=== PATIENT | male | born 1980 | race Caucasian/White ===

== ENCOUNTER 2019-03-12 10:03 | Emergency (ER) | payer SELFPAY ==
[2019-03-12] MEDS ORDERED: Sodium Chloride 0.9% 1,000 ML IV ONE (10:23)
[2019-03-12] MEDS ORDERED: fentaNYL 100 MCG/2 ML SDV IVPUSH ONE ×2 (10:24→11:26)
[2019-03-12] MEDS ORDERED: Ondansetron 4 MG/2 ML SDV IVPUSH ONE (10:24)
--- NOTE | 2019-03-12 10:28 | EDM.PDOC ---
ED HPI GENERAL MEDICAL PROBLEM - General Chief Complaint: Back Pain or Injury Stated Complaint: BACK PAIN , SOB Time Seen by Provider: 03/12/19 10:07 Source of Information: Reports: Patient History Limitations: Reports: No Limitations - History of Present Illness INITIAL COMMENTS - FREE TEXT/NARRATIVE: Presents reporting a 30 minute history of left flank pain. The patient states that he had a little pain last evening but slept well during the night got up went to work and about 10 AM started with pain in the mid left back radiating to the left lower quadrant. No nausea, diarrhea, vomiting, fever, dysuria. Otherwise healthy without chronic medical problems except obesity and poor dentition. No personal or family history of kidney stones. Middle Back Pain Score (Numeric/FACES): 9 - Related Data Allergies Allergy/AdvReac Type Severity Reaction Status Date / Time No Known Allergies Allergy Verified 03/12/19 10:21 Home Meds: Home Meds Hydrocodone/Acetaminophen [[place] 7.5-325 Tablet] 1 each PO Q8HR PRN #20 tablet 03/12/19 [Rx] Ondansetron [Zofran ODT] 1 tab PO Q6H PRN #4 tab.dis 03/12/19 [Rx] Ondansetron [Zofran ODT] 1 tab PO Q6H PRN #4 tab.dis 03/12/19 [Rx] Tamsulosin HCl [Flomax] 0.4 mg PO TID 3 Days #10 capsule 03/12/19 [Rx] ED ROS GENERAL - Review of Systems Review Of Systems: Comprehensive ROS is negative, except as noted in HPI. ED EXAM,LOWER BACK PAIN/INJURY - Physical Exam Exam: See Below Exam Limited By: No Limitations General Appearance: Alert, No Apparent Distress Ears: Normal External Exam Nose: Normal Inspection Throat/Mouth: Normal Inspection Head: Atraumatic, Normocephalic Neck: Normal Inspection Respiratory/Chest: No Respiratory Distress, Lungs Clear, Normal Breath Sounds Cardiovascular: Regular Rate, Rhythm, No Murmur GI/Abdominal: Soft, Non-Tender Back Exam: CVA Tenderness (L) Extremities: Normal Inspection Neurological: Alert, Normal Dorsiflexion Psychiatric: Normal Affect, Normal Mood Skin Exam: Warm, Dry, Intact, Normal Color, No Rash Lymphatic: No Adenopathy Course - Vital Signs Last Recorded V/S: Last Vital Signs Temp 36.2 C 03/12/19 10:10 Pulse 114 H 03/12/19 10:10 Resp 22 H 03/12/19 10:10 BP 156/113 H 03/12/19 10:10 Pulse Ox 95 03/12/19 10:10 - Orders/Labs/Meds Orders: Active Orders 24 hr Category Date Time Status COMPREHENSIVE METABOLIC PN,CMP [CHEM] Stat Lab 03/12/19 10:23 Ordered UA W/MICROSCOPIC [URIN] Stat Lab 03/12/19 10:23 Ordered Sodium Chloride 0.9% [Normal Saline] 1,000 ml Med 03/12/19 10:23 Ordered IV STAT Medication Orders Sodium Chloride (Normal Saline) 1,000 mls @ 999 mls/hr IV STAT ONE Stop: 03/12/19 11:23 Last Admin: 03/12/19 10:49 Dose: 999 mls/hr Labs: Laboratory Tests 03/12/19 Range/Units 10:52 WBC 8.02 (4.0-11.0) K/uL RBC 5.32 (4.50-5.90) M/uL Hgb 16.0 (13.0-17.0) g/dL Hct 47.2 (38.0-50.0) % MCV 88.7 (80.0-98.0) fL MCH 30.1 (27.0-32.0) pg MCHC 33.9 (31.0-37.0) g/dL RDW Std Deviation 42.5 (28.0-62.0) fl RDW Coeff of Matteo 13 (11.0-15.0) % Plt Count 225 (150-400) K/uL MPV 10.30 (7.40-12.00) fL Neut % (Auto) 53.4 (48.0-80.0) % Lymph % (Auto) 35.8 (16.0-40.0) % Power % (Auto) 9.2 (0.0-15.0) % Eos % (Auto) 1.1 (0.0-7.0) % Baso % (Auto) 0.5 (0.0-1.5) % Neut # (Auto) 4.3 (1.4-5.7) K/uL Lymph # (Auto) 2.9 H (0.6-2.4) K/uL Power # (Auto) 0.7 (0.0-0.8) K/uL Eos # (Auto) 0.1 (0.0-0.7) K/uL Baso # (Auto) 0.0 (0.0-0.1) K/uL Nucleated RBC % 0.0 /100WBC Nucleated RBCs # 0 K/uL Meds: Medications Generic Name Dose Route Start Last Admin Trade Name Freq PRN Reason Stop Dose Admin Sodium Chloride 1,000 mls @ 999 mls/hr 03/12/19 10:23 03/12/19 10:49 Normal Saline IV 03/12/19 11:23 999 mls/hr STAT ONE Administration Discontinued Medications Generic Name Dose Route Start Last Admin Trade Name Freq PRN Reason Stop Dose Admin Fentanyl 50 mcg 03/12/19 10:24 03/12/19 10:49 Sublimaze IVPUSH 03/12/19 10:25 50 mcg ONETIME ONE Administration Ketorolac Tromethamine 30 mg 03/12/19 11:10 Toradol IVPUSH 03/12/19 11:11 ONETIME ONE Ondansetron HCl 4 mg 03/12/19 10:24 03/12/19 10:49 Zofran IVPUSH 03/12/19 10:25 4 mg ONETIME ONE Administration Tamsulosin HCl 0.4 mg 03/12/19 11:10 Flomax PO 03/12/19 11:11 ONETIME ONE Departure - Departure Time of Disposition: 11:13 Disposition: Home, Self-Care 01 Condition: Good Clinical Impression: Ureteral calculi - Discharge Information Prescriptions: Hydrocodone/Acetaminophen [[place] 7.5-325 Tablet] 1 each PO Q8HR PRN #20 tablet PRN Reason: Pain Tamsulosin HCl [Flomax] 0.4 mg PO TID 3 Days #10 capsule Referrals: PCP,None [Primary Care Provider] - [facility] [Outside] [facility] [Outside] Loraine Shin MD [Physician] - Forms: ED Department Discharge Additional Instructions: The following information is given to patients seen in the emergency department who are being discharged to home. This information is to outline your options for follow-up care. We provide all patients seen in our emergency department with a follow-up referral. The need for follow-up, as well as the timing and circumstances, are variable depending upon the specifics of your emergency department visit. If you don't have a primary care physician on staff, we will provide you with a referral. We always advise you to contact your personal physician following an emergency department visit to inform them of the circumstance of the visit and for follow-up with them and/or the need for any referrals to a consulting specialist. The emergency department will also refer you to a specialist when appropriate. This referral assures that you have the opportunity for follow-up care with a specialist. All of these measure are taken in an effort to provide you with optimal care, which includes your follow-up. Under all circumstances we always encourage you to contact your private physician who remains a resource for coordinating your care. When calling for follow-up care, please make the office aware that this follow-up is from your recent emergency room visit. If for any reason you are refused follow-up, please contact the [facility] Emergency Department at and asked to speak to the emergency department charge nurse. 1. Strain urine. Bring any retained stones with you to your appointment. 2. Ring plenty of fluids 3. [place] every 8 hours as needed for pain. No driving or operating machinery. 4. Flomax 3 times daily next 3 days 5. Zofran every 6-8 hours as needed for nausea 6. Make an appointment with Dr. Shin in urology. His office has been notified by the emergency department. - My Orders Last 24 Hours: My Active Orders 03/12/19 10:23 COMPREHENSIVE METABOLIC PN,CMP [CHEM] Stat UA W/MICROSCOPIC [URIN] Stat Sodium Chloride 0.9% [Normal Saline] 1,000 ml IV STAT - Assessment/Plan Last 24 Hours: My Active Orders 03/12/19 10:23 COMPREHENSIVE METABOLIC PN,CMP [CHEM] Stat UA W/MICROSCOPIC [URIN] Stat Sodium Chloride 0.9% [Normal Saline] 1,000 ml IV STAT
--- NOTE | 2019-03-12 11:06 | CT ---
EXAM DATE: 03/12/19 PATIENT'S AGE: 38 CT abdomen and pelvis Technique: Multiple axial sections were obtained from above the dome of the diaphragm inferiorly through the pubic symphysis. Intravenous and oral contrast was not utilized. Study performed as a ureteral stone protocol. Comparison: No prior abdominal imaging is available. Findings: Visualized lung bases show nothing acute. Noncontrast appearance of the liver and spleen appear within normal limits. Adrenal glands show no nodule. Pancreas shows no discrete abnormality. Surgical clips are seen from prior cholecystectomy. Aorta shows no aneurysm. No retroperitoneal adenopathy or mesenteric abnormalities are seen. Appendix is seen which is normal in size. No pelvic mass or adenopathy is seen. No free fluid or inflammatory change is seen. Kidneys show no abnormal calcifications. Left ureter is mildly prominent in size. This finding is caused by small obstructing stone located within the distal UVJ projected within the bladder measuring 3.8 mm. No other abnormal calcifications are seen along the course of the ureters. Bone window settings were reviewed which appear within normal limits for the patient's age. Impression: 1. Distal left ureteral stone located within the distal UVJ measuring 3.8 mm and causing minimal proximal hydronephrosis. 2. No additional abnormality is appreciated on noncontrast CT study of the abdomen and pelvis. Diagnostic code #3 This report was dictated in [place] Standard Time Report Signed by Proxy. BETO
[2019-03-12] MEDS ORDERED: Ketorolac 30 MG/ML SDV IVPUSH ONE (11:10)
[2019-03-12] MEDS ORDERED: Tamsulosin 0.4 MG Cap.ER PO ONE (11:10)
[2019-03-12 11:42] LABS: BLOOD UREA NITROGEN,BUN 19 mg/dL (7.0-18.0); CHLORIDE,CL 107 mmol/L (98-107); GLUCOSE RANDOM 114 mg/dL (74-106); POTASSIUM,K 4.2 mmol/L (3.5-5.1); SODIUM,NA 143 mmol/L (136-148)
== END 2019-03-12 12:01 | disposition home or self-care (01) ==
LOC: MW.ED 10:03
DX: N13.2 Hydronephrosis with renal and ureteral calculous obstruction (principal); E66.9 Obesity, unspecified; Z68.43 Body mass index [BMI] 50.0-59.9, adult
CPT/HCPCS: 36415; 74176; 80053; 85025; 96361; 96374; 96375; 96376; 99285; A9270; J1885; J2405; J3010; J7040